=== PATIENT | male | born 1935 | race Caucasian/White ===

== ENCOUNTER → 2018-03-27 | Outpatient (CLI) | payer MEDICARE, BC | LOC: COL.RAD 11:44 | DX: I63.9 Cerebral infarction, unspecified (principal); R27.0 Ataxia, unspecified; G81.94 Hemiplegia, unspecified affecting left nondominant side; E23.6 Other disorders of pituitary gland; G31.9 Degenerative disease of nervous system, unspecified; M47.812 Spondylosis without myelopathy or radiculopathy, cervical region; M48.02 Spinal stenosis, cervical region | CPT/HCPCS: A9585 ==

== ENCOUNTER → 2018-04-14 | Outpatient (CLI) | payer MEDICARE, BC | LOC: COL.RAD 09:47 | DX: D35.2 Benign neoplasm of pituitary gland (principal); Z86.73 Personal history of transient ischemic attack (TIA), and cerebral infarction without residual deficits | CPT/HCPCS: A9585 ==